=== PATIENT | female | born 1985 | race Two or more races ===

== ENCOUNTER 2024-11-10 20:39 | Emergency (ER) | payer OTHER ==
[~2024-11-10] VITALS: Ht 157.5 cm; Wt 51.5 kg
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
[2024-11-10 22:20] VITALS: BP 121/72; PULSE 63; RESP 18; TEMP 98.4; O2SAT 97
[2024-11-10] MEDS: HYDROcodone-ACET 10/325MG TAB PO ONE (22:20)
[2024-11-10] MEDS ORDERED: ACET500T58 PO (22:37)
[2024-11-10] MEDS ORDERED: IBUP-1455 PO (22:37)
== END 2024-11-10 22:45 | disposition home or self-care (01) ==
LOC: EDBD 20:39 → ER 20:39
DX: T14.8XXA Other injury of unspecified body region, initial encounter (principal); V89.2XXA Person injured in unspecified motor-vehicle accident, traffic, initial encounter; Y93.89 Activity, other specified; Y92.488 Other paved roadways as the place of occurrence of the external cause; Y99.8 Other external cause status
CPT/HCPCS: 71046; 72040; 72070; 73030; 73502